=== PATIENT | male | born 1975 | race Caucasian/White ===

== ENCOUNTER 2020-12-26 09:53 | Inpatient (IN) | payer OTHER ==
[~2020-12-26] VITALS: Ht 165.1 cm; Wt 68.9 kg
--- NOTE | 2020-12-26 13:48 | NUR ---
ARRIVES TO FLOOR VIA WC AT APPROX.1245 FROM ER. BROUGHT TO [facility] BY [facility] AFTER HE MADE SUICIDAL STATEMENTS AT [facility] WITH PLAN TO HANG SELF WITH BELT OR TAKE PILLS. DOES CONTINUE TO REPORT SUICIDAL THOUGHTS WITH REPORTED PLAN TO TAKE PILLS UPON ADMIT TO UNIT. DR GARCIA AT BEDSIDE WHEN [T MADE THIS STATEMENTNO ADDITIONAL ORDERS RECEIVED.
--- NOTE | 2020-12-26 14:17 | NUR ---
ADMIT VS OBTAINED -ORIENTED TO ROOM AND UNIT-BELONGINGS INVENTORIED-BECAME MILDLY ANXIOUS WHEN CELL PHONE REMOVED FROM ROOM/PERSON AND INSTRUCTED HE WOULD NOT BE ABLE TO KEEP. OFFERED UNIT PHONE TO USE AND HE STATES DOESN'T HELP BECAUSE HE IS USED TO TEXTING HIS DAUGHTER WHO IS 25-NAME IS NORY. UP AMBULATING IN ROOM BUT IS NOTED TO HAVE SIGNIFICANT BALANCE ISSUES-ATAXIA AND QUALIFYING HIM FOR HIGH FALLS PRECAUTIONS PER MD-YELLOW BAND AND T-SHIRT PROVIDED AND CHAIR ALARM PLACED HE STATES HE WANTS TO SIT UP IN BED. COOPERATIVE WITH REQUESTS FROM STAFF-DOES REQUEST AND REQUIRE SSIST WITH TOILETING AND CLOTHING CHANGE-ABLE TO FEED SELF. CALM AND COOPERATIVE WITH ADMIT SO FAR STATES HE UNDERSTANDS NEED TO BE HERE D/T SI AND IS "OK" WITH IT-STATES HE DOESN'T LIKE [address] AND DOESN'T WANT TO RETURN THERE.
[2020-12-26 14:25] VITALS: BP 120/82
[2020-12-26 19:29] VITALS: BP 136/87
[2020-12-26 21:54] VITALS: BP 136/87
--- NOTE | 2020-12-26 22:59 | NUR ---
9259 RESUMMED CARE FROM OVERNIGHT SHIFT THIS EVENING, PATIENT WAS IN DAY ROOM SITTING QUIET. PATIENT COMPLAINED OF A HEADACHE AND TYLENOL WAS GIVEN WITH NIGHT MEDICATION. PATIENT DENIES HI/AH/VH BUT HAS ACTIVE SI DUE TO HIS CONDITION OF [place]. PATIENT IS PLEASANT CALM PATIENTS ABDOMEN SOFT BOWEL SOUNDS PRESENT. PATIENTS LUNGS CLEAR PATIENT WENT TO BE EARLY WILL CONTINUE TO MONITOR PATIENT FOR SAFETY AND BEHAVIORS.
[2020-12-27 08:22] VITALS: BP 93/70
--- NOTE | 2020-12-27 15:00 | NUR ---
TR PROGRESS NOTE- PT HAS NOT BEEN ACTIVE IN ATTENDING ANY GROUPS. PT HAS BEEN IN BEEN MAJORITY OF THE DAY.
--- NOTE | 2020-12-27 19:11 | NUR ---
0700 ASSUMED CARE OF PATIENT, PATIENT IN BED AT THAT TIME. PATIENT REFUSING TO GET UP FOR BREAKFAST AND STAYS IN BED SLEEPING. PATIENT REFUSED AM MEDICATION AT THAT TIME. DR TO ROOM SPOKE WITH PATIENT, PATIENT AMB TO DAYROOM WITH STANDBY ASSIST. PATIENT QUICKLY REQUESTS TO RETURN TO ROOM. REFUSES TO ATTEND ANY GROUPS. PATIENT SITS ON FLOOR NEXT TO ROOM DOOR IS CLOSED. DOOR OPENED PATIENT SITS IN [place]ORENCE CHAIR IN ROOM. REFUSES LUNCH AND STATES "I ONLY EAT DINNER". 1230 PATIENT AGREES TO TAKE AM MEDS. 1700 PATIENT OUT TO DAYROOM FOR DINNER, RETUNS BACK TO ROOM AFTER EATING 100% OF MEAL. DENIES SI/HI THIS SHIF. LS CLEAR, BS ACTIVE. PATIENT SLIGHTLY UNSTEADY WITH AMB.
[2020-12-27 19:30] VITALS: BP 104/61
--- NOTE | 2020-12-28 05:46 | NUR ---
Assumed care on 12/27/20 @ 1900, in bed at start of the shift with the blanket over his head. Cooperated with assessment and compliant with medication. Bed in low position. Will continue to monitor for safety and comfort as per unit protocol.
--- NOTE | 2020-12-28 11:52 | NUR ---
TR MORNING GROUP NOTE: PT DID ATTEMPT TO ATTEND GROUP. HOWEVER, PATIENT WALKED IN AND OUT OF GROUP ROOM. PATIENT WAS REDIRECTED BY NURSE TO ATTEND GROUP. PT REMAINED SEATED AND OBSERVED THE ENTIRE TIME. PT DID NOT DO ANY EXERCISES.
--- NOTE | 2020-12-28 15:04 | NUR ---
SW completed assessment and tx plan. SW team will remain available.
--- NOTE | 2020-12-28 15:37 | NUR ---
TR EVENING PROGRESS NOTE- PT REMAINED IN HIS ROOM AND DID NOT ATTEND GROUP. PT SHOULD CONSIDER BEING ON A ROOM LOCK. PT ATTENDANCE HAS BEEN POOR SINCE ADMITTED.
--- NOTE | 2020-12-28 18:08 | NUR ---
0700 ASSUMED CARE OF PATIENT, PATIENT IN BED AT THAT TIME. PATIENT REFUSING MEDICATION AT 0800. PATIENT REFUSING TO EAT BREAKFAST, PATIENT STATES "I DO NOT EAT BREAKFAST OR LUNCH". ALUMINIZER SOLEDAD REBOLLEDO HERE, PATIENT AGREES TO TAKE MEDIACTION. MEDS GIVEN WHOLE WITHOUT DIFFICULTY. PATIENT TO DAYROOM PER ALUMINIZER AND ORDERED OUT FOR MEALS AND GROUPS. PATIENT SITS IN DAYROOM ON COUCH THEN HEADS TOWARD ROOM AND STARTS YELLING AND CURSING. SITS ON FLOOR NEXT TO ROOM DOOR. ALUMINIZER TALKS TO PATIENT. PATIENT ATTENDED AM GROUP TODAY. AMB WITH UNSTEADY GAIT WITH STANDBY ASSIST. PATIENT OUT TO DAYROOM FOR DINNER, SITS AT TABLE AND SMILES. PATIENT EATS 100% OF DINNER THEN RETURNS TO ROOM. APON ASSISTING WITH STANDBY ASSIST ELECTRIC KNIFE OPERATOR NOTICED A LUMP TO LEFT LOWER BACK AREA. ELECTRIC KNIFE OPERATOR TALKS TO PATIENT AND PATIENT ALLOWS TO BE EXAMINED AT THAT TIME. ALUMINIZER IN ROOM OBSERVES LUMP. POSSIBLE LYMPHOMA SOFT TO TOUCH WITH NO PAIN. PATIENT STATES HAVING THIS X10 YEARS. IN ROOM SITTING IN CHAIR RESTING AT THIS TIME.
[2020-12-28 19:25] VITALS: BP 127/66
--- NOTE | 2020-12-29 03:28 | NUR ---
ASSESSMENT DOCUMENTED.PT BEEN SLEEPING SINCE THE START OF THE SHIFT.PT CALM AND CO-OPERATIVE WITH CARES.PT TOOK HIS MEDS W/O PROBLEMS.ALERT AND ORIENTED X3.VSS.PT DENIES PAIN OR OR ANY CONCERNS.NO SI VOICED THIS SHIFT.WILL CONT TO MONITOR.
--- NOTE | 2020-12-29 09:38 | NUR ---
Assess due to new admit to [facility] for SI. Healthy BMI 25, no reported wt loss. Repeatedly states does not like to eat breakfast and has been eating other meals. Snacks are available on unit if pt chooses. Low nutrition risk
[2020-12-29 10:16] VITALS: BP 124/83
[2020-12-29 12:39] VITALS: BP 124/83
--- NOTE | 2020-12-29 13:08 | NUR ---
MADHAVI was asked to schedule a family meeting for pt between him, his PA guardian, and the nursing facility. MADHAVI contacted [facility] and was told that the social insurance specialist was not in his office, but that she will give him the message to call MADHAVI back. MADHAVI contacted the [facility] PA guardian office and asked to speak to Nereida or her child support case officer. MADHAVI was told that his child support case officer is Lourdes and she will be back in the office in the afternoon. MADHAVI left a msg on her vm. MADHAVI team will continue to follow pt during his stay on this unit.
--- NOTE | 2020-12-29 15:34 | NUR ---
1530 [facility] FROM OVERNIGHT SHIFT THIS AM, PATIENT IN ROOM QUIET. PATIENT ATE BREAKFAST TOOK MEDICATION WITHOUT INCIDENCE. PATIENT DENIES SI/HI/AH/VH AT PRESENT I ASKED PATIENT IF HE HAD ANY DEPRESSION HE STATED NO. PATIENT HAS PARTICIPATED IN SOME GROUPS. PATIENTS ABDOMEN SOFT BOWEL SOUNDS PRESENT PATIENTS LUNGS CLEAR. PATIENT WORKED WITH PT TODAY DID VERY WELL PT DOES NOT WANT TO USE A WALKER. I MAKE SURE WHEN I SEE HIM GETTING UP TO STAND BY HE AND WALK WITH HIM. WILL CONTINUE TO MONITOR PATIENT FOR SAFETY AND BEHAVIORS.
[2020-12-29 19:48] VITALS: BP 98/56
--- NOTE | 2020-12-30 02:21 | NUR ---
IN ROOM RESTING WITH EYES CLOSED UPON INITIAL ASSESSMENT THIS PM AT 1930-EASILY AROUSABLE TO VERBAL STIMULI AND DOES SIT UP AT SIDE OF BED AND CONVERSE WITH STAFF DURING PM ASSESSMENT AND MED PASS-DOES REPORT HEADACHE RATED A 5 ON 1-10 SCALE-REQUESTED AND RECEIVED TYLENOL 650MG PO PRN. DENIES ANY OTHER COMPLAINTS DURING PHYSICAL ASSESSMENT-DENIES SI AT THIS TIME BUT STATES DID HAVE SOME FLEETING THOUGHTS EARLIER IN DAY-DENIES SPECIFI PLAN OR INTENT. OFFERED HS SNACK AND DID HAVE 2 CARTONS OF ICE CREAM-CONTINUES ON HIGH FALLS PRECAUTIONS D/T UNSTEADY GAIT.
[2020-12-30 09:35] VITALS: BP 113/77
--- NOTE | 2020-12-30 12:17 | NUR ---
Alert to name and situation but not to day and place. Denies SI/HI. Initially did not want to come out of room but then came out and ate 100% of breakfast, participated in groups and interacted with peers until 1100 when he worked with OT. Affect much brighter than during assessment. Occassional tremors per upper extremities. Walks with staggering gait. Breath sounds clear. Reg HR auscultated. Color pink with brisk capillary refill and palpable peripheral pulses. No edema noted. Independent with voiding. Active bowel sounds over soft, flat abdomen. Large lipoma noted on L lower back.
--- NOTE | 2020-12-30 14:52 | NUR ---
MADHAVI spoke to Lourdes at [phone]. Lourdes said that she will attend pts family meeting; MADHAVI and Lourdes agreed upon a 11am family meeting. MADHAVI contacted [facility] again and explained to the boot trimmer that she has not heard back from their outreach and education social worker, and needs for someone to attend a family meeting for pt tomorrow morning. She said their SW is not in today, and put this SW on hold to locate someone who could attend the meeting tomorrow. MADHAVI spoke to Nat who is the Regional DON. She said she will attend via phone also. She also mentioned that they have sent out a couple referrals for pt to [facility]. She is not expecting the SW team to follow-up on it, and knows that she must take pt back when pt is ready for d/c. However, she said pt complains about being their and the two above options will give him more freedom. SW team will continue to follow pt during his stay on this unit.
[2020-12-30 19:16] VITALS: BP 129/93
[2020-12-30 23:17] VITALS: BP 129/93
--- NOTE | 2020-12-30 23:33 | NUR ---
Assumed care on 12/30/20 @ 1900, seated in the day room on a couch facing the TV. Cooperated with assessment, HRRR, lungs clear to auscultation bilat, ABdomonal sounds noted x 4Q, reports bm today. Denies pain. Alert & Oriented x2, not able to report the name of the hospital or the president. Compliant with medications, taking meds whole with water. Will continue to monitor for safety and comfort as per unit protocol. Retired @ HS and is in bed at this writing with eyes closed, respirations even and unlabored. Bed in low position and bed alarm set.
[2020-12-31 12:43] VITALS: BP 106/67
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
--- NOTE | 2020-12-31 14:50 | NUR ---
PATIENT WAS IN BED ASLEEP WHEN CARE ASSUMED, HE INITIALLY DECLINE TO GET OUT OF BED FOR BREAKFAST, "I DON'T EAT BREAKFAST", LATER GOT UP WITH LOTS OF ENCOURAGEMENT FROM STAFF, AND CONSUMED 100% BREAKFAST. PATIENT TOOK MEDICATION WHOLE WITHOUT DIFFICULTY, HE IS INDEPENDENT WITH AMBULATION, GAIT SLIGHTLY UNSTEADY DUE TO [place]ORE[place] DX. PATIENT IS CALM, COOPERATIVE WITH CARE. PATIENT DENIES SUICIDAL/HOMICIDAL IDEATION, HE DENIES DEPRESSION/ANXIETY. PATIENT DENIES HAVING PHYSICAL PAIN. AFFECT IS FLAT/BLUNTED, MOOD IS WORRIED. PATIENT PARTICIPATES IN GROUP THERAPY. NO SIGN OF ACUTE DISTRESS NOTED AT THIS TIME, WILL MONITOR FOR SAFETY.
[2020-12-31 18:52] VITALS: BP 130/73
--- NOTE | 2021-01-01 02:29 | NUR ---
PT CARE ASSUMED WITH PT IN THE ACTIVITY ROOM WITH OTHER .PT IS UP WITH STANDBY ASSIST.PT TOOK MEDICATION WITH NO DIFFICULTIES.PT DENIED ANY PLANS TO HARM SELF.PT IN BED AND APPEARED TO BE SLEEPING ON ROUNDS.WILL CONTINUE TO MONITOR
[2021-01-01 07:52] VITALS: BP 115/85
--- NOTE | 2021-01-01 08:27 | H ---
[facility] [place] [address] HISTORY AND PHYSICAL Name: COLBY DAS Room #: 519A-A ADM IN M.R.#: [id number] Admission: 12/26/20 Attend Phys: Lobo Moise DO Discharge: Date of : 75 Report #: [id number] THIS REPORT FOR: cc: Jose L Beltran MD, Christopher P. MD Kerstein, Andrew H. DO ~ DOC #: [id number] LOBO Moise DO DATE OF SERVICE: 12/26/2020 INPATIENT PSYCHIATRIC EVALUATION ATTENDING PSYCHIATRIST: Lobo Moise DO EDITORIAL WRITER: Dr. Kong. SOURCES OF INFORMATION: Emergency Room records from [facility], screened by signature. Emergency Room records from [place], interview with the patient, records from [facility]. 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 HISTORY OF PRESENT ILLNESS: This is a 45-year-old male residing recently at [facility]. He has Habersham disease. 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 According to the information I have, the patient was referred for psychiatric admission because he is suicidal due to his suicidal plan to hang himself. When I questioned him on the psychiatric unit today, he said his plan was to commit suicide via pills. Apparently, the patient has had several recent ER visits over the last 10 days or so at [facility]. He has been sent back to the senior care. It is unclear exactly his unhappiness with the senior care, although he did make mention how he feels like being there. 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 He denied homicidal ideation, auditory, visual, or tactile hallucinations. He was oriented to person, place, not fully to time. [facility] did a medical workup. His urine drug screen was negative. Alcohol was negative. Urine creatinine was greater than 25. Specific gravity 1.011. Urinalysis was negative. LABORATORY DATA: Hematology: White count 6.7, hemoglobin 15.5 and 47.4, platelet count 280. Electrolytes: Sodium 139, potassium 4.0, chloride 102, bicarbonate 29, glucose 102, BUN 11, creatinine 1.05, AST 8, alkaline phosphatase 54, ALT 8, total bilirubin 0.4, total protein 7.7, albumin 3.4, calcium 9.5, GFR estimated greater than 60. Ethanol less than 10, acetaminophen less than 5, salicylate level 0.9. ADDITIONAL INFORMATION: The patient denied a triggering event to suicidal ideation on 12/25/2020 and visited the ER. It looks like [place] [address] HISTORY AND PHYSICAL Name: THIAGOCOLBY Lennox Room #: 519A-A ADM IN [facility]#: [id number] Admission: 12/26/20 Attend Phys: Lobo Moise DO Discharge: Date of : 75 Report #: [id number] 12:57 on 12/25/2020. MEDICATIONS: Noted to be in the ER are olanzapine 5 mg 1 tab oral in the morning and 2 tabs at night, aspirin 81 mg oral daily, Carafate 1 tab oral every 12 hours, dicyclomine 20 mg 1 tablet oral every 6 hours, cyclobenzaprine 10 mg oral daily, Protonix 40 mg oral daily. His COVID-19 antigen was negative. The patient has had no recent travel outside care facility. SOCIAL HISTORY: Former smoker, never used alcohol, never used any street drugs. REVIEW OF SYSTEMS: CONSTITUTIONAL: Negative. EYES: Negative. EARS: Negative. MOUTH, NOSE, AND THROAT: Negative. CARDIOVASCULAR: Negative. RESPIRATORY: Negative. NEUROLOGIC: Notable for the arm contractures, denying pain in them. HEMATOLOGIC/LYMPHATIC: Negative. ABDOMEN: Negative. Otherwise, negative on pin-point brief review of system. After clarification of records from [facility] his only psychiatric medication review there was Haldol 1 mg twice a day and was scheduled cyclobenzaprine. Given his repeated sent out for suicidal ideation and agitation, I am going to go ahead and start him on an SSRI, namely the Lexapro 5 mg p.o. daily. DEVELOPMENTAL HISTORY: Unknown at this time. ABUSE HISTORY: Unknown. FAMILY HISTORY: Unknown. PHYSICAL EXAMINATION: VITAL SIGNS: Temperature 36.7, pulse 80, respirations 18, BP 120/82, O2 sat 99%. MUSCULOSKELETAL: Abnormal gait. Bilateral arm contractures. He did not have gross dystonia when I tested his bilateral biceps tendons. I have placed him on high-risk fall precautions. MSE WD/WM odd posturing Speech is slow, somewhat monotone. Attention, concentration fair to limited for both. Thought process linear. Very limited thought content. Cannot answer basic questions. Not particularly spontaneous. Some psychomotor retardation, no psychomotor agitation. Endorsed SI. Emelina [facility] [address] [place] [address] HISTORY AND PHYSICAL Name: COLBY DAS JR Room #: 519A-A [facility] IN [facility]#: [id number] Admission: 12/26/20 Attend Phys: Lobo Moise DO Discharge: Date of : 75 Report #: [id number] HI. Denies auditory, visual, or tactile hallucinations. Mood and affect was incongruent with his SI. He tended towards euthymia. Insight and judgment impaired. Fund of knowledge below average. FORMULATION AND PLAN: A 45-year-old male with SI with plan currently under [facility] residing in a senior care, referred for psychiatric admission. DIAGNOSES: At this time, unspecified depression, rule out mood disorder due to general medical condition, rule out early major neurocognitive disorder due to Habersham's disease. The patient has concomitant muscle discomfort. There were no obvious pre-athetoid movements. PLAN: The patient is admitted to Geriatric Psychiatry Unit on voluntary by guardian. Evaluate, stabilize and obtain collateral. Dr. Kong is consulted. CURRENT MEDICATIONS: Pantoprazole 40 mg oral daily, Haldol 1 mg p.o. b.i.d., cyclobenzaprine 10 mg p.o. b.i.d., sucralfate 1 gram p.o. 3 times a day a.c. meals. Otherwise, house PRNs. I will start him on Lexapro 5 mg oral daily. We will need to get some additional information from his guardian. We will see how he does this weekend with Lexapro added on board. We will go from there. Time spent on this case, approximately 45 minutes, greater than 50% of the time spent on reviewing records, coordination of care. STRENGTHS: He is insured. He has a guardian. WEAKNESSES: Habersham's disease. Limited coping skills. LOBO Moise, AHK/GERTRUDIS/MIR <ELECTRONICALLY SIGNED> By: Lobo Moise DO 01/01/21 0827 1659 2100 Lobo Moise DO /nt
[2021-01-01] MEDS ORDERED: LEXAPRO 10 MG T10 M1 PO (09:24)
[2021-01-01] MEDS ORDERED: FLEXERIL PO (09:24)
[2021-01-01] MEDS ORDERED: HALOPERIDOL 1 MG1 MG PO (09:25)
[2021-01-01] MEDS ORDERED: COLACE 100 MG100 MG PO (09:26)
[2021-01-01] MEDS ORDERED: CARAFATE 11 GM/10 M1 PO (09:27)
[2021-01-01] MEDS ORDERED: PROTONIX 20 MG20 MG PO (09:28)
--- NOTE | 2021-01-01 09:50 | NUR ---
Alert and orientated X3, unable to give day, can state month and year. Denies SI/HI. Unaware he is supposed to be discharged today. Irregular gait. Breath sounds clear. Reg HR auscultated. Color pink with brisk capillary refill and palpable peripheral pulses. No edema. Independent with voiding. Active bowel sounds over soft, flat abdomen. States he had BM this AM. Took meds whole with H2O. Received consent to transfer to [facility] from Celia Longo [facility] public hospital administrator. Called [facility] to give report. Spoke with several staff members, none willing to take report, wants field underwriter to call back and speak with DON. Will call back.
--- NOTE | 2021-01-01 11:59 | NUR ---
MADHAVI D/C NOTE MADHAVI faxed d/c docs to [facility]. MADHAVI will file docs in pt's hospital file. No other needs to address at this time.
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
== END 2021-01-01 10:30 | DRG 885 ==
LOC: SBH 09:53
PROVIDERS: ADMIT Psychiatry & Neurology Psychiatry; ATTEND Psychiatry & Neurology Psychiatry
DX: F32.2 Major depressive disorder, single episode, severe without psychotic features (principal); G10 Huntington's disease; R45.851 Suicidal ideations; Z88.8 Allergy status to other drugs, medicaments and biological substances; Z79.899 Other long term (current) drug therapy; Z20.822 Contact with and (suspected) exposure to COVID-19
CPT/HCPCS: 10880